=== PATIENT | female | born 1965 | race Two or more races ===

== ENCOUNTER 2022-05-27 15:56 | Emergency (ER) | payer OTHER ==
[2022-05-27 16:03] VITALS: BP 143/80; PULSE 66; RESP 19; TEMP 98.3; BMI 23.1
[2022-05-27] MEDS ORDERED: DIPHTH,PERTUSS(ACELL),TET 0.5 ML DISP.SYRIN IM ONE ×2 (18:32→18:55)
[2022-05-27] MEDS ORDERED: IBUPROFEN 600 MG TABLET (FP) PO ONE ×2 (18:32→18:54)
== END 2022-05-27 19:16 | disposition home or self-care (01) ==
LOC: JERFT 15:56
PROC: 3E0234Z Introduction of Serum, Toxoid and Vaccine into Muscle, Percutaneous Approach (ICD-10-PCS; principal; 2022-05-27)
DX: S91.202A Unspecified open wound of left great toe with damage to nail, initial encounter (principal); W22.8XXA Striking against or struck by other objects, initial encounter
CPT/HCPCS: 90471; 90715; 99283-25

== ENCOUNTER 2023-01-01 10:26 | Emergency (ER) | payer OTHER ==
[2023-01-01 11:16] VITALS: BMI 24.7
[2023-01-01] MEDS ORDERED: ASPIRIN 81 MG CHEWABLE TABLETS PO ONE (11:40)
[2023-01-01] MEDS ORDERED: ASPIRIN 81 MG CHEWABLE TABLETS ONE (11:50)
[2023-01-01 12:02] LABS: BASO % 0.9 % (0-2.0); EOS % 1.1 % (0-4.5); HEMOGLOBIN 13.4 GM/dL (10.7-15.3); LYMPH % 13.5 % (8-40); MCH 31.8 pg (25.7-33.7); MCHC 34.4 g/dl (32.0-36.0); MEAN CELL VOLUME 92.2 fl (80-96); MEAN PLT VOLUME 8.8 fl (7.5-11.1); MONO % 6.1 % (3.8-10.2); NEUT % 78.4 % (42.8-82.8); PLATELET COUNT 299 10^3/uL (134-434); RBC 4.22 M/mm3 (3.60-5.2); RDW 13.1 % (11.6-15.6); WHITE BLOOD COUNT 9.1 K/mm3 (4.0-10.0)
[2023-01-01 12:19] LABS: CHLORIDE 98 mmol/L (98-107); POTASSIUM 4.4 mmol/L (3.5-5.1); SODIUM 133 mmol/L (136-145)
[2023-01-01 12:21] LABS: ALBUMIN 4.1 g/dl (3.4-5.0); ANION GAP 6 MMOL/L (8-16); CALCIUM 9.7 mg/dL (8.5-10.1); CO2 29 mmol/L (21-32); LIPASE 131 U/L (73-393)
[2023-01-01 12:22] LABS: GLUCOSE,RANDOM 316 mg/dL (74-106)
[2023-01-01 12:24] LABS: BILIRUBIN,DIRECT 0.2 mg/dL (0.0-0.2); CREATININE 0.6 mg/dL (0.55-1.3); SGOT/AST 17 U/L (15-37); SGPT/ALT 25 U/L (13-61)
[2023-01-01 12:26] LABS: TOT PROT 7.6 g/dl (6.4-8.2)
[2023-01-01 12:27] LABS: ALK PHOS 97 U/L (45-117); BILIRUBIN,TOTAL 0.7 mg/dL (0.2-1)
[2023-01-01] MEDS ORDERED: MAG HYDROX/AL HYDROX/SIMETH 30 ML UNIT-DOSE CUP PO ONE (12:43)
[2023-01-01] MEDS ORDERED: FAMOTIDINE 20 MG TABLET PO ONE (12:44)
[2023-01-01] MEDS ORDERED: FAMOTIDINE 20 MG TABLET ONE (12:49)
[2023-01-01] MEDS ORDERED: MAG HYDROX/AL HYDROX/SIMETH 30 ML UNIT-DOSE CUP ONE (12:50)
[2023-01-01 15:15] VITALS: BP 100/67; PULSE 61; RESP 18; TEMP 98
== END 2023-01-01 17:10 | disposition home or self-care (01) ==
LOC: JER 10:26
DX: R10.13 Epigastric pain (principal); R06.02 Shortness of breath; R11.10 Vomiting, unspecified
CPT/HCPCS: 36415; 71046-TC-FY; 80048; 80076; 82550; 83690; 84484; 85025; 93005; 93010; 99285-25